=== PATIENT | male | born 1985 | race Caucasian/White ===

== ENCOUNTER → 2023-10-27 10:19 | Outpatient (CLI) | payer OTHER, SELFPAY ==
--- NOTE | 2023-10-27 10:21 | DI.US.S_ITS ---
PROCEDURE: US SCROTUM INDICATIONS: Left Scrotal Mass TECHNIQUE: Real-time scanning was performed of the scrotum and testicles, with image documentation. Color and pulse Doppler interrogation was performed of both testicles. COMPARISON: None. FINDINGS: Right: Testicle is normal in size at 3.9 x 2.4 x 2.1 cm, and homogenous in echotexture. Epididymis is normal in overall size and morphology. No varicoceles. Overlying scrotal skin is normal in thickness. Right epididymis measures 1.1 cm, homogeneous in echotexture, no abnormal vascularity seen. Mild hydrocele is seen on the right Left: Testicle is normal in size at 4.2 x 2.4 x 1.8 cm, and homogeneous in echotexture. Epididymis is normal in overall size and morphology. No varicoceles. Overlying scrotal skin is normal in thickness. Left epididymis is slightly enlarged. measures 1.3 cm, homogeneous in echotexture, no abnormal vascularity seen. In the area of concern, no mass is identified. Mild to moderate hydrocele seen on the left. Doppler: Color and pulse Doppler demonstrate normal and symmetric arterial flow in both testicles. IMPRESSION: 1. Slightly enlarged left epididymis. No mass is identified in the region of concern indicated by the patient. Recommend follow-up. 2. Mild hydrocele on the right, mild to moderate sized hydrocele on the left. Dictated by: Mario Bui M.D. on 10/27/2023 at 11:30 Approved by: Mario Bui M.D. on 10/27/2023 at 11:35
== END ==
PROVIDERS: Referring Provider Specialist; Visit Provider Specialist
DX: N43.3 Hydrocele, unspecified (principal); L72.9 Follicular cyst of the skin and subcutaneous tissue, unspecified; N43.40 Spermatocele of epididymis, unspecified; N50.812 Left testicular pain; L98.9 Disorder of the skin and subcutaneous tissue, unspecified
CPT/HCPCS: 76870; 81002; 93975; 99214

== ENCOUNTER → 2024-04-04 15:36 | Outpatient (CLI) | payer OTHER, SELFPAY ==
--- NOTE | 2024-04-04 15:37 | DI.US.S_ITS ---
PROCEDURE: US SCROTUM INDICATIONS: CHRONIC LEFT TESTICULAR PAIN TECHNIQUE: Real-time scanning was performed of the scrotum and testicles, with image documentation. Color and pulse Doppler interrogation was performed of both testicles. COMPARISON: [facility], , US SCROTUM, 10/27/2023, 10:30. FINDINGS: Right: Testicle is normal in size at 3.9 x 2.3 x 2.7 cm, and homogenous in echotexture. Epididymis is normal in overall size and morphology. Small hydrocele. No varicoceles. Overlying scrotal skin is normal in thickness. Left: Testicle is normal in size at 4.1 x 2.1 x 2.4 cm, and homogeneous in echotexture. Epididymis is normal in overall size and morphology. Small hydrocele. No varicocele. Overlying scrotal skin is normal in thickness. Doppler: Color and pulse Doppler demonstrate normal and symmetric arterial flow in both testicles. IMPRESSION: Unremarkable scrotal ultrasound. No evidence arc ight is, epididymitis, testicular torsion, or testicular mass. Dictated by: Alexander Martin M.D. on 04/04/2024 at 18:41 Approved by: Alexander Martin M.D. on 04/04/2024 at 18:42
== END ==
PROVIDERS: Referring Provider Specialist; Visit Provider Specialist
DX: N50.812 Left testicular pain (principal); N43.40 Spermatocele of epididymis, unspecified
CPT/HCPCS: 76870; 93975